=== PATIENT | female | born 1945 | race Caucasian/White ===

== ENCOUNTER → 2018-05-15 11:37 | Outpatient (CLI) | payer MEDICARE, OTHER, SELFPAY ==
--- NOTE | 2018-05-15 | DI.MG.S_ITS ---
BILATERAL DIGITAL SCREENING MAMMOGRAM 3D/2D WITH CAD: 05/15/2018 CLINICAL: Routine screening. Family history of breast cancer. Comparison is made to exams dated: 04/17/2016 mammogram, 04/14/2015 mammogram, and 04/18/2017 mammogram - [facility]. The tissue of both breasts is heterogeneously dense. This may lower the sensitivity of mammography. Current study was also evaluated with a Computer Aided Detection (CAD) system. There are mole markers on the left breast. No significant masses, calcifications, or other findings are seen in either breast. There has been no significant interval change. IMPRESSION: NEGATIVE There is no mammographic evidence of malignancy. A 1 year screening mammogram is recommended.(05/16/2019) This exam was interpreted at Station ID: [id number]. NOTE: For mammograms, a report in lay terms will be sent to the patient. Approximately 15% of breast malignancies will not be visualized mammographically. In the management of a palpable breast mass, a negative mammogram must not discourage biopsy of a clinically suspicious lesion. Electronically Signed By: Alfredo timmons/lion:05/16/2018 05:54:44 letter sent: Normal Exam ACR BI-RADS Category 1: Negative 3341F
== END ==
PROVIDERS: PCP Internal Medicine; Visit Provider Internal Medicine
DX: Z12.31 Encounter for screening mammogram for malignant neoplasm of breast (principal); Z80.3 Family history of malignant neoplasm of breast
CPT/HCPCS: 77063; 77067

== ENCOUNTER → 2018-09-27 13:02 | Outpatient (CLI) | payer MEDICARE, OTHER, SELFPAY | PROVIDERS: PCP Internal Medicine; Visit Provider Internal Medicine | DX: Z13.820 Encounter for screening for osteoporosis (principal); M85.851 Other specified disorders of bone density and structure, right thigh; Z78.0 Asymptomatic menopausal state | CPT/HCPCS: 77080 ==

== ENCOUNTER 2018-10-23 12:59 | Day surgery (SDC) | payer MEDICARE, OTHER, SELFPAY ==
--- NOTE | 2018-10-23 | PATH_ITS ---
[facility] Accession Number: [id number] . 01 Material submitted: . PART A: DESCENDING COLON POLYP PART B: SIGMOID COLON POLYP . 02 Diagnosis: A. Descending Colon Polyp: Polypoid-shaped fragment of colon mucosa associated with prominent mucosal lymphoid aggregate. Negative for dysplasia and malignancy. . B. Biopsy, Sigmoid Colon Polyp: Prolapsed mucosal polyp, negative for atypia. MRV/10/24/2018 . 02 Electronically signed: . Keith Levin MD, Pathologist NPI- [id number] . 01 Gross description: . Received two formalin-filled containers, both labeled with the patient's name: . A. In a container labeled descending colon polyp, the specimen consists of a 0.3 cm portion of tissue, entirely submitted in cassette A. B. In a container labeled sigmoid colon polyp, the specimen consists of a 0.2 cm portion of tissue, entirely submitted in cassette B. (DC:[id number]) /FRR . 02 Pathologist provided ICD-10: K63.5 . 02 CPT . 726119, 909350 Performed at: 01 [facility] [address] [id number] MD Ever Nevarez MD Phone: [phone] Performed at: 02 [facility] [address] [place], [place] [id number] MD Kamila Morfin MD Phone: [phone]
[2018-10-23 13:20] VITALS: BMI 23.3
[2018-10-23 13:31] VITALS: BP 128/81; PULSE 92; RESP 16; TEMP 37.1; O2SAT 98
[2018-10-23] MEDS: SODIUM CHLORIDE 0.9% 1,000 ML 70 ML IV (13:34)
--- NOTE | 2018-10-23 13:55 | PM.HP.1 ---
History of Present Illness Chief complaint: [id number] SCREENING COLONOSCOPY W/POSS BX Patient History Social History household members: spouse Family & Social History Social History: household members spouse Meds Home Medications Medication Instructions Recorded Confirmed Type Glucosamine Msm 1,500 mg PO DAILY 10/22/18 10/23/18 History Vitamin D3 2,000 unit PO DAILY 10/22/18 10/23/18 History multivitamin 1 tab PO DAILY 10/22/18 10/23/18 History Collagen Plus Vitamin C 3 tab PO DAILY 10/23/18 10/23/18 History Super B Maxi Complex 1 tab PO DAILY 10/23/18 10/23/18 History Allergies Allergy/AdvReac Type Severity Reaction Status Date / Time peanut [PEANUT] Allergy Unknown ITCHING Verified 10/23/18 13:48 Exam Vital Signs (past 8 hours): - 10/23/18 13:31 Temperature 98.7 F Pulse Rate 92 H Respiratory Rate 16 Blood Pressure 128/81 Pulse Oximetry 98 Oxygen Delivery Method Room Air
--- NOTE | 2018-10-23 14:16 | PM.HP.1 ---
History of Present Illness Date Patient Seen: 10/23/18 Chief complaint: [phone] [phone] SCREENING COLONOSCOPY W/POSS BX Narrative: 72-year-old female here for colon cancer screening. Last colonoscopy was performed in 2006 with no significant findings. Patient currently has no active GI issues at present. Patient History Social History household members: spouse Family & Social History Social History: household members spouse Meds Home Medications Medication Instructions Recorded Confirmed Type Glucosamine Msm 1,500 mg PO DAILY 10/22/18 10/23/18 History Vitamin D3 2,000 unit PO DAILY 10/22/18 10/23/18 History multivitamin 1 tab PO DAILY 10/22/18 10/23/18 History Collagen Plus Vitamin C 3 tab PO DAILY 10/23/18 10/23/18 History Super B Maxi Complex 1 tab PO DAILY 10/23/18 10/23/18 History Allergies Allergy/AdvReac Type Severity Reaction Status Date / Time peanut [PEANUT] Allergy Unknown ITCHING Verified 10/23/18 13:48 Exam Vital Signs (past 8 hours): - 10/23/18 13:31 Temperature 98.7 F Pulse Rate 92 H Respiratory Rate 16 Blood Pressure 128/81 Pulse Oximetry 98 Oxygen Delivery Method Room Air Narrative Exam Narrative: General: Patient is well developed, not in apparent distress Cardiovascular: Regular rate and rhythm, no murmurs, rubs, or gallops; no evidence of edema; no palpable abdominal aortic aneurysm Gastrointestinal: Normoactive bowel sounds, soft, nontender, nondistended, no rebound tenderness, no hepatosplenomegaly, no evidence of hernia Assessment & Plan Assessment & Plan narrative: 72-year-old female here for colon cancer screening Regarding the procedure(s), the risks and potential complications, benefits, and alternatives (including not doing the procedure) were discussed with the patient. The risks include but are not limited to bleeding, splenic injury, infection, perforation which may require surgical intervention, missed lesions, and adverse reactions to sedative medicines. After a question and answer period, the patient agreed to proceed with the procedure(s) and gives informed consent.
[2018-10-23] MEDS: MIDAZOLAM 5 MG/5 ML VIAL IV (14:24)
[2018-10-23] MEDS: fentaNYL 250 MCG/5 ML INJ IV (14:24)
--- NOTE | 2018-10-23 14:32 | PM.OP.ENDO ---
Operative Date/Time/Diagnoses Date of procedure: 10/23/18 Procedure Notes Procedure in detail: Surgeon: Alfredo Hart MD Procedure: Colonoscopy with polypectomy Preoperative diagnosis: Average risk colon cancer screening Postoperative diagnosis: 2 Colon polyps status post polypectomy; sigmoid diverticulosis; grade 2 internal hemorrhoids Medications: Conscious sedation using 3 mg IV of Midazolam and 100 mcg IV of Fentanyl Preanesthesia Assessment An H and P was performed/updated and the Px?s ASA class is 1. The procedure was discussed in detail with the patient. The potential risks and complications including infection, bleeding, missed lesions, perforation, need for surgery in case of perforation, prolonged hospital stay, and were explained. A brief question and answer period was allotted and once all questions were answered, informed consent was obtained. The patient was brought back to the procedure room and placed on standard monitoring. The patient?s vital signs were monitored continuously throughout the entire procedure. Prior to starting, a timeout was performed to confirm the patient?s identity, allergies, medications, and procedure. Procedure in detail The patient was placed in left lateral decubitus position and once adequate sedation was obtained a JAELYN was performed. The digital rectal examination did not reveal any palpable lesions. The tip of the colonoscope was placed in the anal canal and advanced without difficulty all the way to the cecum which was identified by the appendiceal orifice and the ileocecal valve. Careful examination of all veliz of the colon was performed with irrigation of any residual stool. In the descending colon there was note of a 2 mm sessile polyp which was removed by means of cold Jumbo forceps. Resection and retrieval were complete with minimal bleeding. In the sigmoid colon there was note of a 3 mm sessile polyp which was removed by means of cold Jumbo forceps. Resection and retrieval were complete with minimal bleeding. There was note of multiple small to medium-sized diverticula in the sigmoid colon. Retroflexion was performed in the rectum which revealed grade 2 internal hemorrhoids The patient tolerated the procedure well and will be brought back to the recovery area to be discharged once criteria are met. The prep was judged to be good/excellent and adequate to identify polyps less than 5 mm. The withdrawal time was 7 min. The total physician intraservice time was 14 min. Complications There were no complications and estimated blood loss was minimal. Recommendations: Resume previous diet Continue outPx medications Follow up pathology results Repeat colonoscopy in 5 or 10 years depending on pathology results If you are having issues with your hemorrhoids you can call our office to make an appointment to be evaluated for hemorrhoid banding. An emergency contact number was given to the patient for any complications related to the procedure
[2018-10-23 14:36] VITALS: BP 105/63; PULSE 69; RESP 13; TEMP 36.4; O2SAT 96
--- NOTE | 2018-10-23 14:36 | PM.DS.1 ---
History of Present Illness Chief complaint: [id number] [phone] SCREENING COLONOSCOPY W/POSS BX Discharge Providers Discharge Date: 10/23/18 Primary care physician: Hannah Dodson MD Discharge provider: Alfredo Hart MD Exam Vital Signs (past 8 hours): - 10/23/18 13:31 Temperature 98.7 F Pulse Rate 92 H Respiratory Rate 16 Blood Pressure 128/81 Pulse Oximetry 98 Oxygen Delivery Method Room Air Narrative Exam Narrative: General: Patient is well developed, not in apparent distress Cardiovascular: Regular rate and rhythm, no murmurs, rubs, or gallops; no evidence of edema; no palpable abdominal aortic aneurysm Gastrointestinal: Normoactive bowel sounds, soft, nontender, nondistended, no rebound tenderness, no hepatosplenomegaly, no evidence of hernia Discharge Plan Discharge Plan Patient Disposition: Home Discharge Med Rec/Prescriptions Prescriptions: Continued Glucosamine Msm 1,500 mg PO DAILY RF: 0 Vitamin D3 2,000 unit PO DAILY RF: 0 multivitamin 1 tab PO DAILY RF: 0 Collagen Plus Vitamin C 3 tab PO DAILY RF: 0 Super B Maxi Complex 1 tab PO DAILY RF: 0 Follow up/Referrals: Hannah Dodson MD [Primary Care Provider] - Discharge Orders: Discharge (Order); Ordered 10/23/18 Ordered By: Alrfedo Hart Provider Discharge Instructions Diet: Diet as Tolerated Visit Report/Discharge Packet Stand Alone Forms: Colonoscopy Result: [facility] Discharge Data Primary Care Provider: Hnanah Dodson Attending Provider: Alfredo Hart
[2018-10-23 14:41] VITALS: BP 116/64; PULSE 71; RESP 15; O2SAT 98
[2018-10-23 15:05] VITALS: BP 123/67; PULSE 68; RESP 16; TEMP 37.1; O2SAT 96
== END 2018-10-23 15:18 | disposition home or self-care (01) ==
PROVIDERS: PCP Internal Medicine; Visit Provider Internal Medicine Gastroenterology
PROC: 0DJD8ZZ Inspection of Lower Intestinal Tract, Via Natural or Artificial Opening Endoscopic (ICD-10-PCS; CPT 45378; principal; 2018-10-23 15:30)
DX: Z12.11 Encounter for screening for malignant neoplasm of colon (principal); K57.30 Diverticulosis of large intestine without perforation or abscess without bleeding; K64.1 Second degree hemorrhoids; D12.4 Benign neoplasm of descending colon; D12.5 Benign neoplasm of sigmoid colon
CPT/HCPCS: 45380; 88305; J2250; J3010

== ENCOUNTER → 2019-04-23 13:09 | Outpatient (CLI) | payer MEDICARE, OTHER, SELFPAY ==
--- NOTE | 2019-04-23 | DI.RAD.S_ITS ---
PROCEDURE: XR CHEST 2V INDICATIONS: Nontoxic single thyroid nodule TECHNIQUE: 2 views of the chest were acquired. COMPARISON: [facility], , CHEST 1 VIEW, 08/25/2015, 16:26. FINDINGS: Surgical changes and devices: None. Lungs and pleura: Lungs are clear. No pleural effusions or pneumothorax. Mediastinum: Mediastinal contours are normal. Heart size is normal. Bones and chest wall: No suspicious bony abnormalities. Soft tissues appear unremarkable. IMPRESSION: Normal chest evaluation. Lung volumes are relatively large. Dictated by: Max Singh M.D. on 04/23/2019 at 13:47 Approved by: Max Singh M.D. on 04/23/2019 at 13:47
--- NOTE | 2019-04-23 | DI.US.S_ITS ---
PROCEDURE: US THYROID INDICATIONS: NONTOXIC SINGLE THYROID NODULE TECHNIQUE: Real-time scanning was performed of the thyroid gland, with image documentation. COMPARISON: [facility], US, THYROID, 12/20/2010, 13:08. FINDINGS: Right: Thyroid lobe measures 4.5 x 1.2 x 1.9 cm, and is homogeneous in echotexture. Left: Thyroid lobe measures 3.8 x 1.0 x 1.0 cm, and is homogenous in echotexture. Isthmus: 2.0 mm thick. Nodule number: 1 Location: Right mid Size: Increased at 1.8 x 1.1 x 1.2 cm. Composition: Predominantly solid Echogenicity: Hypoechoic Shape: wider than tall. Margins: Smooth Echogenic foci: None Total points: 4 ACR TI-RADS category: Moderately suspicious Nodule number: 2 Location: Right inferior Size: Unchanged 0.4 x 0.2 x 0.3 cm. Composition: Cystic Echogenicity: Anechoic Shape: wider than tall. Margins: Smooth Echogenic foci: None Total points: 0 ACR TI-RADS category: Nodule number: 3 Location: Left superior Size: Slightly increased at 0.9 x 0.5 x 0.4 cm. Composition: Cystic Echogenicity: Anechoic Shape: wider than tall. Margins: Smooth Echogenic foci: Comet tail artifact Total points: 0 ACR TI-RADS category: Benign Nodule number: 4 Location: Left mid Size: Unchanged at 0.6 x 0.5 x 0.5 Composition: Hypoechoic Echogenicity: Predominantly solid Shape: wider than tall. Margins: Hypoechoic Echogenic foci: Internal echogenic punctate foci Total points: 7 ACR TI-RADS category: Highly suspicious. IMPRESSION: Small bilateral thyroid nodules. No fine-needle aspiration recommended at this time. Recommend followup ultrasound as below. ACR TI-RADS definitions and recommendations: TI-RADS 1 (benign): 0 points. FNA not needed. TI-RADS 2 (not suspicious): 2 points. FNA not needed. TI-RADS 3 (mildly suspicious): 3 points. * FNA if 2.5 cm or larger, follow up if 1.5 cm or larger (at 1, 3, and 5 years). TI-RADS 4 (moderately suspicious): 4-6 points. * FNA if 1.5 cm or larger, follow up if 1 cm or larger (at 1, 2, 3, and 5 years). TI-RADS 5 (highly suspicious): 7 points or more. * FNA if 1 cm or larger, follow up if 0.5 cm or larger (every year for 5 years). Dictated by: Jeromy CROWELL Interpreted: Ruba Barahona MD on 04/23/2019 at 14:11 Approved by: Ruba Barahona MD, PhD on 04/23/2019 at 17:27
== END ==
PROVIDERS: PCP Internal Medicine; Visit Provider Internal Medicine
DX: E04.2 Nontoxic multinodular goiter (principal); R91.1 Solitary pulmonary nodule
CPT/HCPCS: 71046; 76536

== ENCOUNTER → 2019-05-15 08:24 | Outpatient (CLI) | payer MEDICARE, OTHER, SELFPAY | PROVIDERS: PCP Internal Medicine; Visit Provider Internal Medicine | DX: E04.1 Nontoxic single thyroid nodule (principal); Z53.9 Procedure and treatment not carried out, unspecified reason ==

== ENCOUNTER → 2019-05-19 14:00 | Outpatient (CLI) | payer MEDICARE, OTHER, SELFPAY ==
--- NOTE | 2019-05-19 | DI.MG.S_ITS ---
BILATERAL DIGITAL SCREENING MAMMOGRAM 3D/2D WITH CAD: 05/19/2019 CLINICAL: Routine screening. Family history of breast cancer. Comparison is made to exams dated: 05/15/2018 mammogram, 04/18/2017 mammogram, and 04/17/2016 mammogram - [facility]. The tissue of both breasts is heterogeneously dense. This may lower the sensitivity of mammography. Current study was also evaluated with a Computer Aided Detection (CAD) system. There are mole markers on the left breast. No significant masses, calcifications, or other findings are seen in either breast. There has been no significant interval change. IMPRESSION: NEGATIVE There is no mammographic evidence of malignancy. A 1 year screening mammogram is recommended. This exam was interpreted at Station ID: [id number]. NOTE: For mammograms, a report in lay terms will be sent to the patient. Approximately 15% of breast malignancies will not be visualized mammographically. In the management of a palpable breast mass, a negative mammogram must not discourage biopsy of a clinically suspicious lesion. Electronically Signed By: Teofilo rogers/lion:05/19/2019 17:12:58 letter sent: Normal Exam ACR BI-RADS Category 1: Negative 3341F
--- NOTE | 2019-05-19 | DI.US.S_ITS ---
PROCEDURE: US FINE NEEDLE ASPIRATION INDICATIONS: RT THYROID NODULE TECHNIQUE: The indications, alternatives, benefits, risks, and complications of the procedure were explained to the patient. Written informed consent was obtained and placed in the chart. The thyroid region was examined sonographically and a site was chosen for ultrasound guided percutaneous sampling. The skin was prepared and draped in the usual fashion, and anesthetized with 1% lidocaine infiltrated from the skin down to the thyroid gland. Multiple passes were then performed, with contents emptied into an appropriate pathology specimen container. A bandage was applied to the area of access at completion of the study. COMPARISON: None. FINDINGS: Location(s) of lesion(s) sampled: Right lobe thyroid [place]: 25 and 22 gauge hypodermic needles. Number of passes: 6 Medications: 1% lidocaine for local anaesthesia. Complications: None. IMPRESSION: Successful ultrasound-guided thyroid nodule fine needle aspiration, with cytology results pending. Please see chart below for management recommendations based on cytology results. [facility] ReportingRecommendationsNon-diagnostic* Repeat US-guided FNA, with on-site cytology evaluation if possible. * Repeated non-diagnostic nodules without high suspicion US features: close observation vs surgical consult. * Consider surgery if nodule has high suspicion US features, grows >20% in 2 dimensions on followup, or patient has clinical risk factors for malignancy. Benign* If nodule has high suspicion US features: repeat US and FNA within 12 months. * If nodule has low to intermediate suspicion US features: repeat US at 12-24 months. If nodule grows (20% increase in at least 2 dimensions, with minimal increase of 2 mm or >50% change in volume), or development of new suspicious US features, then repeat FNA or continue followup. * If nodule has very low suspicion US features: followup US at >24 months. Atypia of undetermined significance, follicular lesion of undetermined significanceRepeat FNA, molecular testing, followup US, or surgical consult.Follicular neoplasm, suspicious for follicular neoplasmSurgical consult; also consider molecular testing. Suspicious for malignancySurgical consult.MalignantSurgical consult. Dictated by: Ceasar Bolanos M.D. on 05/19/2019 at 15:58 Approved by: Ceasar Bolanos M.D. on 05/19/2019 at 15:59
--- NOTE | 2019-05-19 | PATH_ITS ---
Note [facility] Accession Number: [id number] TESTS RESULT FLAG UNITS REF RANGE LAB Clinician Provided Cytology Information No. of containers..01 ThinPrep Vial No. of containers..10 Previously Prepared Cytology Slide RIGHT THYROID NODULE DIAGNOSIS: 02 RIGHT THYROID NODULE NEGATIVE FOR MALIGNANT CELLS. [place] CATEGORY II - BENIGN. SPECIMEN CONSISTS OF BENIGN FOLLICULAR CELLS, HEMOSIDERIN-LADEN MACROPHAGES, COLLOID, AND BLOOD. THIS PATTERN IS CONSISTENT WITH A COLLOID NODULE. Pathologist ICD10: 02 E04.1 01 RIGHT: THYROID LOBE MEASURES 4.5X1.2X1.9 CM, AND IS HOMOGENEOUS IN ECHOTEXTURE. LEFT: THYROID LOBE MEASURES 3.8X1.0X1.0 CM, AND IS HOMOGENEOUS IN ECHOTEXTURE. ISTHMUS: 2.0 MM THICK. 02 Dayne Mac MD, PhD, Pathologist NPI- [id number] Shaun Cyr, Donor Services Manager ([facility]) 01 30 CC, RED, CLEAR RECEIVED: 5 ALCOHOL FIXED AND 5 QUICK STAINED SLIDES WITH 1 RNA VIAL FOR FURTHER TESTING. /VDU 05/20/2019 0638 [facility] FLAG LEGEND: L-Low Normal,H-High Normal,LL-Alert Low,HH-Alert High <-Panic Low,>-Panic High,A-Abnormal,AA-Critical Abnormal Performed at: 01 =[facility] [address] [place] [address] [address], [place] [address] Ever Nevarez MD, 02 [facility] [address] [place] [address] Kamila Morfin MD, Performed at: 01 [facility] [address] [id number] MD Ever Nevarez MD Phone: [phone]
== END ==
PROVIDERS: PCP Internal Medicine; Visit Provider Internal Medicine
DX: Z12.31 Encounter for screening mammogram for malignant neoplasm of breast (principal); Z80.3 Family history of malignant neoplasm of breast; E04.1 Nontoxic single thyroid nodule
CPT/HCPCS: 10005; 77063; 77067

== ENCOUNTER → 2020-05-20 10:19 | Outpatient (CLI) | payer MEDICARE, OTHER, SELFPAY ==
--- NOTE | 2020-05-20 | DI.US.S_ITS ---
PROCEDURE: US THYROID INDICATIONS: Nontoxic single thyroid nodule TECHNIQUE: Real-time scanning was performed of the thyroid gland, with image documentation. COMPARISON: [facility], US, US THYROID, 04/23/2019, 13:38. FINDINGS: Right: Thyroid lobe measures 4.8 x 1.3 x 1.8 cm, and is homogeneous in echotexture. Left: Thyroid lobe measures 3.8 x 0.8 x 1.2 cm, and is homogenous in echotexture. Isthmus: 2.0 mm thick. Nodule number: 1 Location: Right mid Size: Unchanged 1.8 x 1.3 x 1.3 cm. Composition: Solid Echogenicity: Hypoechoic Shape: wider than tall. Margins: Smooth Echogenic foci: None Total points: For ACR TI-RADS category: Moderately suspicious Nodule number: 2 Location: Right inferior Size: Unchanged 0.3 x 0.2 x 0.2 cm. Composition: Cystic Echogenicity: Anechoic Shape: wider than tall. Margins: Small Echogenic foci: None Total points: 0 ACR TI-RADS category: Benign Nodule number: 3 Location: Left superior Size: Unchanged at 0.8 x 0.6 x 0.7 cm. Composition: Cystic Echogenicity: Anechoic Shape: wider than tall. Margins: Smooth Echogenic foci: None Total points: 0 ACR TI-RADS category: Benign Nodule number: 4 Location: Left mid Size: Unchanged 0.6 x 0.4 x 0.5 cm. Composition: Solid Echogenicity: Hypoechoic Shape: wider than tall. Margins: Smooth Echogenic foci: Internal punctate echogenic foci Total points: 7 ACR TI-RADS category: Highly suspicious IMPRESSION: Stable appearance of bilateral thyroid nodules and cyst compared to prior examination. Given the small sizes, no FNA is recommended at this time; however continued sonographic surveillance is recommended. ACR TI-RADS definitions and recommendations: TI-RADS 1 (benign): 0 points. FNA not needed. TI-RADS 2 (not suspicious): 2 points. FNA not needed. TI-RADS 3 (mildly suspicious): 3 points. * FNA if 2.5 cm or larger, follow up if 1.5 cm or larger (at 1, 3, and 5 years). TI-RADS 4 (moderately suspicious): 4-6 points. * FNA if 1.5 cm or larger, follow up if 1 cm or larger (at 1, 2, 3, and 5 years). TI-RADS 5 (highly suspicious): 7 points or more. * FNA if 1 cm or larger, follow up if 0.5 cm or larger (every year for 5 years). Dictated by: Jeromy ANTON Interpreted: Max Singh MD on 05/20/2020 at 12:02 Approved by: Max Singh M.D. on 05/20/2020 at 17:19
--- NOTE | 2020-05-20 | DI.MG.S_ITS ---
BILATERAL DIGITAL SCREENING MAMMOGRAM 3D/2D WITH CAD: 05/20/2020 CLINICAL: Routine screening. Family history of breast cancer. Comparison is made to exams dated: 05/19/2019 mammogram, 05/15/2018 mammogram, and 04/18/2017 mammogram - [facility]. The tissue of both breasts is heterogeneously dense. This may lower the sensitivity of mammography. Current study was also evaluated with a Computer Aided Detection (CAD) system. No significant masses, calcifications, or other findings are seen in either breast. There has been no significant interval change. IMPRESSION: NEGATIVE There is no mammographic evidence of malignancy. A 1 year screening mammogram is recommended. This exam was interpreted at Station ID: [id number]. NOTE: For mammograms, a report in lay terms will be sent to the patient. Approximately 15% of breast malignancies will not be visualized mammographically. In the management of a palpable breast mass, a negative mammogram must not discourage biopsy of a clinically suspicious lesion. Electronically Signed By: Chong ervin/lion:05/20/2020 16:20:30 letter sent: Normal Exam ACR BI-RADS Category 1: Negative 3341F
== END ==
PROVIDERS: PCP Internal Medicine; Referring Provider Internal Medicine; Visit Provider Internal Medicine
DX: Z12.31 Encounter for screening mammogram for malignant neoplasm of breast (principal); Z80.3 Family history of malignant neoplasm of breast; E04.2 Nontoxic multinodular goiter
CPT/HCPCS: 76536; 77063; 77067

== ENCOUNTER → 2021-05-23 10:29 | Outpatient (CLI) | payer MEDICARE, OTHER, SELFPAY ==
--- NOTE | 2021-05-23 | DI.MG.S_ITS ---
BILATERAL DIGITAL SCREENING MAMMOGRAM 3D/2D WITH CAD: 05/23/2021 CLINICAL: Routine screening. Family history of breast cancer. Comparison is made to exams dated: 05/20/2020 mammogram, 05/19/2019 mammogram, and 05/15/2018 mammogram - [facility]. The tissue of both breasts is heterogeneously dense. This may lower the sensitivity of mammography. Current study was also evaluated with a Computer Aided Detection (CAD) system. No significant masses, calcifications, or other findings are seen in either breast. There has been no significant interval change. IMPRESSION: NEGATIVE There is no mammographic evidence of malignancy. A 1 year screening mammogram is recommended. This exam was interpreted at Station ID: [id number]. NOTE: For mammograms, a report in lay terms will be sent to the patient. Approximately 15% of breast malignancies will not be visualized mammographically. In the management of a palpable breast mass, a negative mammogram must not discourage biopsy of a clinically suspicious lesion. Electronically Signed By: Cristo Vitale M.D., jr/lion:05/23/2021 11:41:01 letter sent: Normal Exam ACR BI-RADS Category 1: Negative 3341F
== END ==
PROVIDERS: PCP Physician Assistant; Referring Provider Physician Assistant; Visit Provider Physician Assistant
DX: Z12.31 Encounter for screening mammogram for malignant neoplasm of breast (principal); Z80.3 Family history of malignant neoplasm of breast
CPT/HCPCS: 77063; 77067

== ENCOUNTER → 2021-08-02 17:31 | Outpatient (CLI) | payer MEDICARE, OTHER, SELFPAY ==
--- NOTE | 2021-08-02 17:33 | DI.MRI.S_ITS ---
PROCEDURE: MR LUMBAR SPINE WO CON INDICATIONS: Radiculopathy, site unspecified TECHNIQUE: Noncontrast sagittal T1 spin echo and T2 fast echo, sagittal STIR, axial T1 and T2 fast spin echo through the lumbar spine. In cases with scoliosis, additional coronal T2 fast spin echo may be performed. COMPARISON: None. FINDINGS: Image quality: Excellent. Alignment and Curvature: There is trace L2-L3 anterolisthesis.. Mild convex right curvature of the lumbar spine. Bone Marrow: Schmorl's node noted in the superior endplate of the L3 vertebral body. Mild Modic type 2 reactive endplate changes noted adjacent to the L4-L5 and L5-S1 discs. Mild Modic type 1 reactive endplate changes noted adjacent to the L2-L3 disc. No acute vertebral body compression fractures. Spinal Cord: Conus medullaris terminates at the L1 level. Visualized cord demonstrates normal signal and size. Paraspinous Soft Tissues: No paravertebral masses. T12-L1: Loss of disc signal. Mild, diffuse disc bulge. Mild bilateral facet hypertrophy. Mild narrowing of the central canal. Mild left neural foraminal narrowing. No neural compression. L1-L2: Slight loss of disc signal. Mild bilateral facet hypertrophy. No central stenosis. No neural foraminal narrowing. No neural compression. L2-L3: Loss of disc signal and mild loss of disc height. Mild, diffuse disc bulge. Jlar-iz-juvuptvp bilateral facet hypertrophy. Mild to moderate narrowing of the central canal. Mild right and zhgl-fv-xqpvvzrp left neural foraminal narrowing. No neural compression. L3-L4: Loss of disc signal. Mild to moderate diffuse disc bulge. Hqyt-ao-hxhwbxdv bilateral facet hypertrophy. Mild to moderate narrowing of the central canal. Mild right and kfin-hp-repqxjgm left neural foraminal narrowing. No neural compression. L4-L5: Loss of disc signal and height. Mild, diffuse disc bulge. Moderate bilateral facet hypertrophy. Mild ligamentum flavum hypertrophy. Moderate narrowing of the central canal. Moderate bilateral neural foraminal narrowing. No neural compression. L5-S1: Loss of disc signal and height. Mild, diffuse disc bulge. Rcrn-pb-fapbbxwq bilateral facet hypertrophy. No central stenosis. Moderate to severe right and moderate left neural foraminal narrowing with slight compression of the exiting right L5 nerve root. IMPRESSION: 1. Multilevel degenerative disc disease. 2. Multilevel facet arthropathy. 3. No severe central canal narrowing. 4. Moderate to severe right L5-S1 neural foraminal narrowing with slight compression of the exiting right L5 nerve root. Dictated by: Ruba Barahona MD, PhD on 08/03/2021 at 9:44 Approved by: Ruba Barahona MD, PhD on 08/03/2021 at 10:14
== END ==
PROVIDERS: PCP Physician Assistant; Referring Provider Physician Assistant; Visit Provider Physician Assistant
DX: M51.17 Intervertebral disc disorders with radiculopathy, lumbosacral region (principal); M51.16 Intervertebral disc disorders with radiculopathy, lumbar region; M47.26 Other spondylosis with radiculopathy, lumbar region; M47.27 Other spondylosis with radiculopathy, lumbosacral region; M48.061 Spinal stenosis, lumbar region without neurogenic claudication; M48.07 Spinal stenosis, lumbosacral region
CPT/HCPCS: 72148

== ENCOUNTER → 2021-08-08 15:54 | Outpatient (CLI) | payer MEDICARE, OTHER, SELFPAY ==
--- NOTE | 2021-08-08 | DI.US.S_ITS ---
PROCEDURE: US THYROID INDICATIONS: NONTOXIC MULTINODULAR GOITER TECHNIQUE: Real-time scanning was performed of the thyroid gland, with image documentation. COMPARISON: [facility], US, US THYROID, 05/20/2020, 11:14. FINDINGS: Right: Thyroid lobe measures 5.2 x 1.3 x 2.1 cm, and is diffusely heterogeneous in echotexture. Left: Thyroid lobe measures 4.0 x 1.2 x 1.0 cm, and is diffusely heterogeneous in echotexture. Isthmus: 3.0 mm thick. Nodule number: 1 Location: Left superior Size: 0.7 x 0.3 x 0.2 cm. Composition: Cystic Echogenicity: Anechoic Shape: wider than tall. Margins: Smooth Echogenic foci: Not requested. Total points: 0 ACR TI-RADS category: Benign colloid cyst Nodule number: 2 Location: Left superior Size: 1.1 x 0.3 x 0.4 cm. Composition: Mixed cystic and solid Echogenicity: Heterogeneous Shape: wider than tall. Margins: Smooth Echogenic foci: None Total points: 3 ACR TI-RADS category: Mildly suspicious Nodule number: 3 Location: Left mid Size: Unchanged 0.5 x 0.3 x 0.4 cm. Composition: Solid Echogenicity: Hypoechoic Shape: wider than tall. Margins: Smooth Echogenic foci: Internal punctate echogenic foci Total points: 7 ACR TI-RADS category: Highly suspicious Nodule number: 4 Location: Right mid Size: Cyst slightly increased at 2.5 x 1.2 x 1.6 cm. Composition: Cystic Echogenicity: Anechoic Shape: wider than tall. Margins: Smooth Echogenic foci: None Total points: 0 ACR TI-RADS category: Benign colloid cyst Nodule number: 5 Location: Right superior Size: Unchanged 0.5 x 0.2 x 0.3 cm. Composition: Mixed cystic and solid Echogenicity: Heterogeneous Shape: wider than tall. Margins: Smooth Echogenic foci: None Total points: 2 ACR TI-RADS category: Not suspicious IMPRESSION: Bilateral thyroid nodules as above. Recommend continued followup ultrasound as detailed below. ACR TI-RADS definitions and recommendations: TI-RADS 1 (benign): 0 points. FNA not needed. TI-RADS 2 (not suspicious): 2 points. FNA not needed. TI-RADS 3 (mildly suspicious): 3 points. * FNA if 2.5 cm or larger, follow up if 1.5 cm or larger (at 1, 3, and 5 years). TI-RADS 4 (moderately suspicious): 4-6 points. * FNA if 1.5 cm or larger, follow up if 1 cm or larger (at 1, 2, 3, and 5 years). TI-RADS 5 (highly suspicious): 7 points or more. * FNA if 1 cm or larger, follow up if 0.5 cm or larger (every year for 5 years). Dictated by: Jeromy Keller [facility] Interpreted: Vincent Medeiros MD on 08/08/2021 at 16:57 Transcribed by: IDA on 08/08/2021 at 17:02 Approved by: Vincent Medeiros M.D. on 08/08/2021 at 18:14
== END ==
PROVIDERS: PCP Physician Assistant; Referring Provider Physician Assistant; Visit Provider Physician Assistant
DX: E04.2 Nontoxic multinodular goiter (principal); M25.551 Pain in right hip; M54.10 Radiculopathy, site unspecified
CPT/HCPCS: 76536

== ENCOUNTER → 2022-08-24 11:01 | Outpatient (CLI) | payer MEDICARE, OTHER, SELFPAY ==
[2022-08-24 12:37] LABS: Hematocrit 39.5 % (36-46); Hemoglobin 13.1 g/dL (12.0-16.0); Mean Corpuscular HGB Conc 33.1 % (30-36); Mean Corpuscular Volume 90.7 fL (80-100); Platelet Count 272 X10^3/uL (150-400); Red Blood Cell Count 4.36 X10^6/uL (4.0-5.2); White Blood Cell Count 4.2 X10^3/uL (4.5-11.0)
[2022-08-24 13:05] LABS: Alanine Aminotransferase 24 IU/L (<35); Albumin 4.4 g/dL (3.5-5.0); Albumin Globulin Ratio 1.4 (1.0-2.8); Alkaline Phosphatase 69 U/L (38-126); Aspartate Aminotransferase 26 IU/L (14-36); BUN Creatinine Ratio 18.3 (6-22); Bilirubin Total 1.7 mg/dL (0.2-1.3); Blood Urea Nitrogen 13 mg/dL (7-17); Calcium 10.3 mg/dL (8.4-10.2); Carbon Dioxide 29 mmol/L (22-32); Chloride 99 mmol/L (98-107); Estimated Glomerular Filt Rate > 60 mL/min (>60); Globulin 3.2 g/dL (1.7-4.1); Glucose 87 mg/dL (80-110); HDL Cholesterol 60 mg/dL (40-60); HEMOLYSIS < 15 (0-50); Potassium 4.2 mmol/L (3.4-5.1); Sodium 138 mmol/L (137-145); Total Protein 7.6 g/dL (6.3-8.2); Triglycerides 100 mg/dL (35-150)
[2022-08-24 13:14] LABS: Cholesterol 407 mg/dL (140-199); LDL Cholesterol Calculated 327 mg/dL (<100)
[2022-08-24 13:55] LABS: TSH w/ Reflex to FT4 1.21 uIU/mL (0.47-4.68)
== END ==
PROVIDERS: PCP Internal Medicine; Referring Provider Internal Medicine; Visit Provider Internal Medicine
DX: E04.1 Nontoxic single thyroid nodule (principal); E78.2 Mixed hyperlipidemia
CPT/HCPCS: 36415; 80053; 80061; 84443; 85027

== ENCOUNTER → 2022-08-25 08:58 | Outpatient (CLI) | payer MEDICARE, OTHER, SELFPAY ==
--- NOTE | 2022-08-25 | DI.MG.S_ITS ---
BILATERAL DIGITAL SCREENING MAMMOGRAM 3D/2D WITH CAD: 08/25/2022 CLINICAL: Routine screening. Family history of breast cancer. Comparison is made to exams dated: 05/23/2021 mammogram, 05/20/2020 mammogram, 05/19/2019 mammogram, 04/17/2016 mammogram, 04/14/2015 mammogram, and 04/13/2014 mammogram - [facility]. There are scattered areas of fibroglandular density in both breasts (category b / 25%-50% glandular tissue). Current study was also evaluated with a Computer Aided Detection (CAD) system. No significant masses, calcifications, or other findings are seen in either breast. There has been no significant interval change. IMPRESSION: NEGATIVE There is no mammographic evidence of malignancy. A 1 year screening mammogram is recommended. Based on the Tyrer Cuzick model (a risk assessment model) the patient's lifetime risk is 4.3% and her 10 year risk is 0.0%. According to the ACR, ACS, and NCCN guidelines, an annual breast MRI exam along with mammogram is recommended if the patient's lifetime risk is 20% or greater. This exam was interpreted at Station ID: [id number]. NOTE: For mammograms, a report in lay terms will be sent to the patient. Approximately 15% of breast malignancies will not be visualized mammographically. In the management of a palpable breast mass, a negative mammogram must not discourage biopsy of a clinically suspicious lesion. Electronically Signed By: Teofilo rogers/lion:08/25/2022 19:24:26 letter sent: Normal Exam ACR BI-RADS Category 1: Negative 3341F
--- NOTE | 2022-08-25 08:58 | DI.US.S_ITS ---
PROCEDURE: US THYROID INDICATIONS: THYROID NODULES TECHNIQUE: Real-time scanning was performed of the thyroid gland, with image documentation. COMPARISON: [facility], US, US THYROID, 08/08/2021, 16:24. FINDINGS: Right: Thyroid lobe measures 5.7 x 1.9 x 1.4 cm, and is heterogeneous in echotexture. Left: Thyroid lobe measures 3.8 x 1.3 x 0.9 cm, and is heterogeneous in echotexture. Isthmus: 1.4 mm thick. Nodule number: 1 Location: Upper pole left thyroid lobe Size: 1.4 x 0.4 x 0.3 cm, previously 1.1 x 0.4 x 0.3 cm. Composition: Predominantly solid Echogenicity: Hypoechoic Shape: Wider than tall Margins: Smooth Echogenic foci: None Total points: 4 ACR TI-RADS category: Moderately suspicious. Nodule number: 2 Location: Upper to midpole left thyroid lobe Size: 0.9 x 0.3 x 0.3 cm. New since previous study. Composition: Cystic Echogenicity: Anechoic Shape: Wider than tall Margins: Smooth Echogenic foci: Punctate Total points: 2 ACR TI-RADS category: Not suspicious. Nodule number: 3 Location: Mid pole of left thyroid lobe Size: 0.5 x 0.4 x 0.3 cm. Unchanged from prior study. Composition: Predominantly solid Echogenicity: Hypoechoic Shape: Wider than tall Margins: Smooth Echogenic foci: Punctate Total points: 7 ACR TI-RADS category: Highly suspicious. Nodule number: 4 Location: Mid pole of right thyroid lobe Size: 3 x 1.5 x 1.4 cm. Previously 2.5 x 1.6 x 1.2 cm Composition: Predominantly solid Echogenicity: Anechoic Shape: Wider than tall Margins: Smooth Echogenic foci: None Total points: 4 ACR TI-RADS category: Moderately suspicious. Nodule number: 5 Location: Lower pole of right thyroid lobe Size: 0.6 x 0.4 x 0.3 cm. Previously 0.5 x 0.3 x 0.2 cm Composition: Predominantly cystic Echogenicity: Anechoic Shape: Wider than tall Margins: Smooth Echogenic foci: None Total points: 2 ACR TI-RADS category: Not suspicious. IMPRESSION: 1. Interval development of a small not suspicious cystic nodule in left thyroid lobe. 2. Interval slight increase in size of patient's known mixed solid and cystic nodule in mid pole of right thyroid lobe. Consider fine-needle aspiration of this nodule for more definitive diagnosis. Thyroid nodule 4. 3. Other thyroid nodules bilaterally are all essentially unchanged. Continued ultrasound follow-up is recommended. ACR TI-RADS definitions and recommendations: TI-RADS 1 (benign): 0 points. FNA not needed. TI-RADS 2 (not suspicious): 2 points. FNA not needed. TI-RADS 3 (mildly suspicious): 3 points. * FNA if 2.5 cm or larger, follow up if 1.5 cm or larger (at 1, 3, and 5 years). TI-RADS 4 (moderately suspicious): 4-6 points. * FNA if 1.5 cm or larger, follow up if 1 cm or larger (at 1, 2, 3, and 5 years). TI-RADS 5 (highly suspicious): 7 points or more. * FNA if 1 cm or larger, follow up if 0.5 cm or larger (every year for 5 years). Dictated by: Vincent Medeiros M.D. on 08/25/2022 at 13:57 Approved by: Vincent Medeiros M.D. on 08/25/2022 at 14:08
--- NOTE | 2022-09-28 | PATH_ITS ---
Note [facility] Accession Number: [id number] TESTS RESULT FLAG UNITS REF RANGE LAB Clinician Provided Cytology Information No. of containers..01 Other (Miscellaneous) No. of containers..02 Previously Prepared Cytology Slide Source: RIGHT THYROID NODULE DIAGNOSIS: RIGHT THYROID NODULE, FINE NEEDLE ASPIRATION. NEGATIVE FOR MALIGNANT CELLS. ADEQUATE FOR EVALUATION. FOLLICULAR GROUPS ARE PRESENT. FAVOR BENIGN FOLLICULAR (GOITEROUS) NODULE (BETHESDA CATEGORY II), SEE COMMENT. COMMENT: MICROSCOPIC EXAMINATION REVEALS A MILDLY CELLULAR ASPIRATE, COMPOSED OF FEW FOLLICULAR GROUPS (>6 GROUPS THAT ARE REQUIRED FOR ADEQUACY) WITH REACTIVE/REPARATIVE CHANGES, COLLOID AND BACKGROUND MACROPHAGES. THESE FINDINGS FAVOR A BENIGN FOLLICULAR (GOITEROUS) NODULE. HOWEVER, SINCE THIS ASPIRATE IS MILDLY CELLULAR, IT MAY NOT BE SPRING ASSEMBLER OF THE PATIENT'S LESION. CORRELATION WITH CLINICAL AND RADIOGRAPHIC FINDINGS IS RECOMMENDED TO ENSURE THAT THE LESION HAS BEEN ADEQUATELY SAMPLED. ACCORDING TO THE BETHESDA REPORTING SYSTEM FOR THYROID CYTOPATHOLOGY, THE RISK OF MALIGNANCY IN THE CATEGORY BENIGN-CATEGORY II IS 0-3%; THEREFORE RECOMMEND CONTINUED ULTRASOUND SURVEILLANCE WITH REPEAT FNA IF THE NODULE SIGNIFICANTLY INCREASES IN SIZE. Pathologist ICD10: 01 E04.1 Signed out by: Buzz Aguilar MD, Pathologist NPI- [id number] Performed by: Mj Villatoro, Plunger Shovel Operator ([facility]) Gross description: 30 CC, RED, CLOUDY RECEIVED IN [employer] WHITE CAP CONTAINER RECEIVED 6 ALCOHOL FIXED SLIDES IN 2 GREEN CAP COFFINS RECEIVED 6 DRY FIXED SLIDES IN 2 SLIDE HOLDERS RECEIVED 1 RNA VIAL /RZA 09/29/2022 1028 Local FLAG LEGEND: L-Low Normal,H-High Normal,LL-Alert Low,HH-Alert High <-Panic Low,>-Panic High,A-Abnormal,AA-Critical Abnormal Performed at: 01 =Z [facility] [address] [place] [address], [place] [address] Ever Nevarez MD, Performed at: 01 [facility] [address] [place] [address] [address], [place], [place] [id number] MD Ever Nevarez MD Phone: [phone]
== END ==
PROVIDERS: PCP Internal Medicine; Referring Provider Internal Medicine; Visit Provider Internal Medicine
DX: Z12.31 Encounter for screening mammogram for malignant neoplasm of breast (principal); Z80.3 Family history of malignant neoplasm of breast; E04.2 Nontoxic multinodular goiter
CPT/HCPCS: 76536; 77063; 77067

== ENCOUNTER → 2022-09-28 12:19 | Outpatient (CLI) | payer MEDICARE, OTHER, SELFPAY ==
--- NOTE | 2022-09-28 12:21 | DI.US.S_ITS ---
PROCEDURE: US FINE NEEDLE ASPIRATION INDICATIONS: THYROID NODULE FINE NEEDLE ASPIRATION TECHNIQUE: The indications, alternatives, benefits, risks, and complications of the procedure were explained to the patient. Written informed consent was obtained and placed in the chart. The thyroid region was examined sonographically and a site was chosen for ultrasound guided percutaneous sampling. The skin was prepared and draped in the usual fashion, and anesthetized with 1% lidocaine infiltrated from the skin down to the thyroid gland. Multiple passes were then performed, with contents emptied into an appropriate pathology specimen container. A bandage was applied to the area of access at completion of the study. COMPARISON: [facility], US, US FINE NEEDLE ASPIRATION, 05/19/2019, 15:05. FINDINGS: Location(s) of lesion(s) sampled: Right mid thyroid lobe Weidman: 25 gauge hypodermic needles. Number of passes: 6. In addition, the cystic component was aspirated with a 22 gauge needle. Medications: 1% lidocaine for local anaesthesia. Complications: None. IMPRESSION: Successful ultrasound-guided thyroid nodule fine needle aspiration, with cytology results pending. Please see chart below for management recommendations based on cytology results. [facility] ReportingRecommendationsNon-diagnostic* Repeat US-guided FNA, with on-site cytology evaluation if possible. * Repeated non-diagnostic nodules without high suspicion US features: close observation vs surgical consult. * Consider surgery if nodule has high suspicion US features, grows >20% in 2 dimensions on followup, or patient has clinical risk factors for malignancy. Benign* If nodule has high suspicion US features: repeat US and FNA within 12 months. * If nodule has low to intermediate suspicion US features: repeat US at 12-24 months. If nodule grows (20% increase in at least 2 dimensions, with minimal increase of 2 mm or >50% change in volume), or development of new suspicious US features, then repeat FNA or continue followup. * If nodule has very low suspicion US features: followup US at >24 months. Atypia of undetermined significance, follicular lesion of undetermined significanceRepeat FNA, molecular testing, followup US, or surgical consult.Follicular neoplasm, suspicious for follicular neoplasmSurgical consult; also consider molecular testing. Suspicious for malignancySurgical consult.MalignantSurgical consult. Dictated by: Anne Rosenberg M.D. on 09/28/2022 at 16:59 Approved by: Anne Rosenberg M.D. on 09/28/2022 at 17:01
== END ==
PROVIDERS: PCP Internal Medicine; Referring Provider Internal Medicine; Visit Provider Internal Medicine
DX: E04.1 Nontoxic single thyroid nodule (principal)
CPT/HCPCS: 10005

== ENCOUNTER → 2023-08-27 09:46 | Outpatient (CLI) | payer MEDICARE, OTHER, SELFPAY ==
--- NOTE | 2023-08-27 | DI.MG.S_ITS ---
BILATERAL DIGITAL SCREENING MAMMOGRAM 3D/2D WITH CAD: 08/27/2023 CLINICAL: Routine screening. Family history of breast cancer. Comparison is made to exams dated: 08/25/2022 mammogram, 05/23/2021 mammogram, and 05/20/2020 mammogram - [facility]. There are scattered areas of fibroglandular density in both breasts (category b / 25%-50% glandular tissue). Current study was also evaluated with a Computer Aided Detection (CAD) system. No significant masses, calcifications, or other findings are seen in either breast. There has been no significant interval change. IMPRESSION: NEGATIVE There is no mammographic evidence of malignancy. A 1 year screening mammogram is recommended. Based on the Tyrer Cuzick model (a risk assessment model) the patient's lifetime risk is 3.8% and her 10 year risk is 0.0%. According to the ACR, ACS, and NCCN guidelines, an annual breast MRI exam along with mammogram is recommended if the patient's lifetime risk is 20% or greater. This exam was interpreted at Station ID: [id number]. NOTE: For mammograms, a report in lay terms will be sent to the patient. Approximately 15% of breast malignancies will not be visualized mammographically. In the management of a palpable breast mass, a negative mammogram must not discourage biopsy of a clinically suspicious lesion. Electronically Signed By: Catie chau/lion:08/27/2023 13:54:42 letter sent: Normal Exam ACR BI-RADS Category 1: Negative 3341F
[2023-08-27 14:10] LABS: Aspartate Aminotransferase 28 IU/L (14-36); BUN Creatinine Ratio 20.3 (6-22); Blood Urea Nitrogen 14 mg/dL (7-17); Carbon Dioxide 28 mmol/L (22-32); Chloride 103 mmol/L (98-107); Estimated Glomerular Filt Rate > 60 mL/min (>60); Glucose 90 mg/dL (80-110); HDL Cholesterol 54 mg/dL (40-60); HEMOLYSIS < 15 (0-50); Potassium 4.3 mmol/L (3.4-5.1); Sodium 139 mmol/L (137-145); Triglycerides 81 mg/dL (35-150)
[2023-08-27 14:21] LABS: Cholesterol 397 mg/dL (140-199); LDL Cholesterol Calculated 327 mg/dL (<100)
[2023-08-27 14:39] LABS: TSH w/ Reflex to FT4 1.25 uIU/mL (0.47-4.68)
== END ==
PROVIDERS: PCP Internal Medicine; Referring Provider Internal Medicine; Visit Provider Internal Medicine
DX: Z12.31 Encounter for screening mammogram for malignant neoplasm of breast (principal); R92.323 Mammographic fibroglandular density, bilateral breasts; Z80.3 Family history of malignant neoplasm of breast; E04.1 Nontoxic single thyroid nodule; E78.2 Mixed hyperlipidemia
CPT/HCPCS: 36415; 77063; 77067; 80048; 80061; 84443; 84450

== ENCOUNTER → 2023-08-30 13:07 | Outpatient (CLI) | payer MEDICARE, OTHER, SELFPAY ==
--- NOTE | 2023-08-30 13:09 | DI.US.S_ITS ---
PROCEDURE: US THYROID INDICATIONS: thyroid nodule follow up TECHNIQUE: Real-time scanning was performed of the thyroid gland, with image documentation. COMPARISON: [facility], US, US THYROID, 08/25/2022, 9:41. FINDINGS: Right: Thyroid lobe measures 4.5 x 2.2 x 1.8 cm, and is homogeneous in echotexture. Left: Thyroid lobe measures 3.0 x 1.2 x 1.2 cm, and is homogenous in echotexture. Isthmus: 0.2 cm thick. Nodule number: 1 Location: Left superior Size: 0.9 x 0.4 x 0.3 cm, previously 1.4 x 0.4 x 0.3 cm. Composition: Solid Echogenicity: Hypoechoic Shape: wider than tall. Margins: Smooth Echogenic foci: None Total points: 4 ACR TI-RADS category: Moderately suspicious Nodule number: 2 Location: Left mid superior Size: 0.5 x 0.3 x 0.3 cm, previously 0.9 x 0.3 x 0.3 cm. Composition: Solid Echogenicity: Hypoechoic Shape: wider than tall. Margins: Smooth Echogenic foci: None Total points: 4 ACR TI-RADS category: Moderately suspicious Nodule number: 3 Location: Left mid Size: 0.5 x 0.4 x 0.3 cm, previously 0.5 x 0.4 x 0.3 cm. Composition: Cystic Echogenicity: Anechoic Shape: wider than tall. Margins: Smooth Echogenic foci: Large foci with comet tail from colloid cyst Total points: 0 ACR TI-RADS category: Benign Nodule number: 4 Location: Right mid Size: 2.6 x 1.8 x 1.8 cm, previously 3.0 x 1.5 x 1.4 cm. Composition: Cystic and solid Echogenicity: Hypoechoic Shape: wider than tall. Margins: Smooth Echogenic foci: None Total points: 3 ACR TI-RADS category: Mildly suspicious, previously biopsied on 09/28/2022 demonstrating benign pathology Nodule number: 5 Location: Right inferior Size: 0.6 x 0.3 x 0.3 cm, likely new from prior Composition: Solid Echogenicity: Hypoechoic Shape: wider than tall. Margins: Smooth Echogenic foci: None Total points: 4 ACR TI-RADS category: Moderately suspicious IMPRESSION: Moderately suspicious bilateral thyroid nodules with recommended imaging follow-up as below. Status post benign FNA of 2.6 cm mildly suspicious right thyroid nodule. ACR TI-RADS definitions and recommendations: TI-RADS 1 (benign): 0 points. FNA not needed. TI-RADS 2 (not suspicious): 2 points. FNA not needed. TI-RADS 3 (mildly suspicious): 3 points. * FNA if 2.5 cm or larger, follow up if 1.5 cm or larger (at 1, 3, and 5 years). TI-RADS 4 (moderately suspicious): 4-6 points. * FNA if 1.5 cm or larger, follow up if 1 cm or larger (at 1, 2, 3, and 5 years). TI-RADS 5 (highly suspicious): 7 points or more. * FNA if 1 cm or larger, follow up if 0.5 cm or larger (every year for 5 years). Approved by: Zamzam Pichardo M.D. on 08/30/2023 at 21:26
== END ==
LOC: US 13:08
PROVIDERS: PCP Internal Medicine; Referring Provider Internal Medicine; Visit Provider Internal Medicine
DX: E04.2 Nontoxic multinodular goiter (principal)
CPT/HCPCS: 76536

== ENCOUNTER → 2024-09-24 10:52 | Outpatient (CLI) | payer MEDICARE, OTHER, SELFPAY ==
--- NOTE | 2024-09-24 10:54 | DI.RAD.S_ITS ---
PROCEDURE: XR PELVIS 1-2V INDICATIONS: left pelvic pain TECHNIQUE: AP view of the pelvis was obtained COMPARISON: None. FINDINGS: Bones: No osseous abnormalities. Joints: SI and hip joints are normal without alignment. Moderate L5-S1 degenerative disc disease noted. Soft tissues: Visualized bowel gas pattern is normal. No suspicious soft tissue calcifications. IMPRESSION: Normal pelvis. Moderate L5-S1 degenerative disc disease Dictated by: Juanjo Mercado M.D. on 09/25/2024 at 17:33 Approved by: Juanjo Mercado M.D. on 09/25/2024 at 17:34
--- NOTE | 2024-09-24 10:54 | DI.RAD.S_ITS ---
PROCEDURE: XR SHOULDER LT MIN 2V INDICATIONS: left shoulder pain TECHNIQUE: Three views of the left shoulder were acquired COMPARISON: : None FINDINGS: New Bones: No focal osseous abnormalities. There is mild superior subluxation of the humeral head suggesting chronic rotator cuff tear/impingement. Joints: Mild acromioclavicular and glenohumeral degeneration Soft tissues: No suspicious soft tissue calcifications. IMPRESSION: Mild superior humeral head subluxation suggesting rotator cuff tear . Mild degeneration Dictated by: Juanjo Mercado M.D. on 09/25/2024 at 17:24 Approved by: Juanjo Mercado M.D. on 09/25/2024 at 17:25
[2024-09-24 12:36] LABS: Aspartate Aminotransferase 28 IU/L (14-36); BUN Creatinine Ratio 19.7 (6-22); Blood Urea Nitrogen 15 mg/dL (7-17); Calcium 9.8 mg/dL (8.4-10.2); Carbon Dioxide 29 mmol/L (22-32); Chloride 102 mmol/L (98-107); Estimated Glomerular Filt Rate > 60 mL/min (>60); Glucose 108 mg/dL (80-110); HDL Cholesterol 58 mg/dL (40-60); HEMOLYSIS < 15 (0-50); Potassium 4.6 mmol/L (3.4-5.1); Sodium 139 mmol/L (137-145); Triglycerides 100 mg/dL (35-150)
[2024-09-24 12:51] LABS: Cholesterol 400 mg/dL (140-199); LDL Cholesterol Calculated 322 mg/dL (<100)
[2024-09-24 13:02] LABS: TSH w/ Reflex to FT4 1.57 uIU/mL (0.47-4.68)
== END ==
PROVIDERS: PCP Internal Medicine; Referring Provider Internal Medicine; Visit Provider Internal Medicine
DX: S43.002A Unspecified subluxation of left shoulder joint, initial encounter (principal); M19.012 Primary osteoarthritis, left shoulder; M25.512 Pain in left shoulder; M51.379 Other intervertebral disc degeneration, lumbosacral region without mention of lumbar back pain or lower extremity pain; M25.552 Pain in left hip; E78.2 Mixed hyperlipidemia; E04.1 Nontoxic single thyroid nodule
CPT/HCPCS: 36415; 72170; 73030; 80048; 80061; 84443; 84450

== ENCOUNTER → 2024-10-07 14:46 | Outpatient (CLI) | payer MEDICARE, OTHER, SELFPAY ==
--- NOTE | 2024-10-07 14:48 | DI.US.S_ITS ---
PROCEDURE: US THYROID INDICATIONS: followup nodules TECHNIQUE: Real-time scanning was performed of the thyroid gland, with image documentation. COMPARISON: US, US FINE NEEDLE ASPIRATION, 09/28/2022, 13:39. [facility], US, US THYROID, 08/25/2022, 9:41. [facility], US, US THYROID, 08/30/2023, 13:20. FINDINGS: Thyroid: Right lobe measures 5.0 x 2.2 x 2.1 cm. Left lobe measures 3.3 x 1.1 x 0.7 cm. Isthmus is 0.2 cm thick. Echotexture is heterogeneous on the right. Nodule number: 1 Location: Right mid inferior Size: Increased at 3.5 cm. Composition: Predominantly cystic Echogenicity: Predominantly anechoic Shape: wider than tall. Margins: Smooth Echogenic foci: Absent Total points: 0 ACR TI-RADS category: Benign colloid cyst. 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 ACR TI-RADS definitions and recommendations: TI-RADS 1 (benign): 0 points. FNA not needed. TI-RADS 2 (not suspicious): 2 points. FNA not needed. TI-RADS 3: 3 points. * FNA if 2.5 cm or larger, follow up if 1.5 cm or larger (at 1, 3, and 5 years). TI-RADS 4: 4-6 points. * FNA if 1.5 cm or larger, follow up if 1 cm or larger (at 1, 2, 3, and 5 years). TI-RADS 5: 7 points or more. * FNA if 1 cm or larger, follow up if 0.5 cm or larger (every year for 5 years). Dictated by: Jeromy Keller [facility] Interpreted: Moraima Tamez MD on 10/07/2024 at 16:18 Transcribed by: OVI on 10/07/2024 at 16:21 Approved by: Moraima Tamez M.D. on 10/07/2024 at 18:06
--- NOTE | 2024-10-07 14:48 | DI.MG.S_ITS ---
BILATERAL DIGITAL SCREENING MAMMOGRAM 3D/2D WITH CAD: 10/07/2024 CLINICAL: Routine screening. Family history of breast cancer. Comparison is made to exams dated: 08/27/2023 mammogram, 08/25/2022 mammogram, and 05/23/2021 mammogram - [facility]. There are scattered areas of fibroglandular density (category b / 25%-50% glandular tissue). Current study was also evaluated with a Computer Aided Detection (CAD) system. No significant masses, calcifications, or other findings are seen in either breast. There has been no significant interval change. IMPRESSION: NEGATIVE There is no mammographic evidence of malignancy. A 1 year screening mammogram is recommended. Based on the Tyrer Cuzick model (a risk assessment model) the patient's lifetime risk is 3.2% and her 10 year risk is 0.0%. According to the ACR, ACS, and NCCN guidelines, an annual breast MRI exam along with mammogram is recommended if the patient's lifetime risk is 20% or greater. This exam was interpreted at Station ID: [id number]. NOTE: For mammograms, a report in lay terms will be sent to the patient. Approximately 15% of breast malignancies will not be visualized mammographically. In the management of a palpable breast mass, a negative mammogram must not discourage biopsy of a clinically suspicious lesion. Electronically Signed By: Zamzam Pichardo M.D., Ph.D. mary/lion:10/08/2024 22:14:08 letter sent: Normal Exam ACR BI-RADS Category 1: Negative
== END ==
LOC: US 14:47
PROVIDERS: PCP Internal Medicine; Referring Provider Internal Medicine; Visit Provider Internal Medicine
DX: Z12.31 Encounter for screening mammogram for malignant neoplasm of breast (principal); Z80.3 Family history of malignant neoplasm of breast; E04.1 Nontoxic single thyroid nodule
CPT/HCPCS: 76536; 77063; 77067

== ENCOUNTER → 2025-08-03 07:23 | Outpatient (CLI) | payer MEDICARE, OTHER, SELFPAY ==
--- NOTE | 2025-08-03 07:26 | DI.MRI.S_ITS ---
PROCEDURE: MR PELVIS WO CON INDICATIONS: left hip pain TECHNIQUE: Noncontrast coronal and axial T1 spin echo and STIR through the bony pelvis. COMPARISON: [facility], CR, XR PELVIS 1-2V, 09/24/2024, 10:56. FINDINGS: Image quality: Excellent. Bones: Mild fibrovascular end plate change at the right aspect of L5-S1. The visualized sacrum is intact. Mild degenerative changes of the right sacroiliac joint with mild subchondral marrow edema about the right posterior sacroiliac joint. The left sacroiliac joint is unremarkable. No acute fracture or dislocation of the right hip. Joint space of the right hip is grossly well maintained. Mild degenerative changes of the left hip, with mild subchondral cystic changes and marrow edema in the left anterior acetabulum. No acute fracture or dislocation of the left hip. Tendons: The right iliopsoas, adductor, and hamstring tendons are unremarkable. Full-thickness tear of the right gluteal minimus at the greater trochanteric insertion, without significant tendon retraction. The right gluteal medius tendon is unremarkable. No right greater trochanteric bursitis. The left iliopsoas, adductor, and hamstring tendon are unremarkable. The left gluteal minimus and medius are unremarkable. No paralabral cysts of either hip. Soft tissues: The uterus is not visualized, may be surgically absent. IMPRESSION: 1. 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 2. Mild fibrovascular end plate change at L5-S1. 3. Mild degenerative change of the right sacroiliac joint. 4. Full-thickness tear of the right gluteal minimus at the greater trochanteric insertion, without significant tendon retraction. Somewhat limited evaluation given large field of view. Dictated by: Karin Adamson M.D. on 08/03/2025 at 14:07 Approved by: Karin Adamson M.D. on 08/03/2025 at 14:21
== END ==
LOC: MRI 07:24
PROVIDERS: PCP Internal Medicine; Referring Provider Internal Medicine; Visit Provider Internal Medicine
DX: S76.011A Strain of muscle, fascia and tendon of right hip, initial encounter (principal); S76.012D Strain of muscle, fascia and tendon of left hip, subsequent encounter
CPT/HCPCS: 72195